=== PATIENT | female | born 1980 | race American Indian/Alaskan Native ===

== ENCOUNTER 2018-01-27 04:19 | Emergency (ER) | payer SELFPAY ==
[2018-01-27 05:28] VITALS: BP 128/92
[2018-01-27 06:11] LABS: HCG Qualitative,Urine Negative (Negative)
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
[2018-01-27] MEDS ORDERED: NORCO 5/325 PO ONE (08:19)
[2018-01-27] MEDS ORDERED: ZOFRAN ODT PO ONE (08:32)
[2018-01-27] MEDS ORDERED: ZOFRAN ODT ONE (08:36)
== END 2018-01-27 08:55 | disposition home or self-care (01) ==
LOC: ED 04:19
DX: S10.93XA Contusion of unspecified part of neck, initial encounter (principal); G44.319 Acute post-traumatic headache, not intractable; Y04.0XXA Assault by unarmed brawl or fight, initial encounter; Y93.89 Activity, other specified; Y92.009 Unspecified place in unspecified non-institutional (private) residence as the place of occurrence of the external cause; Y99.8 Other external cause status
CPT/HCPCS: 70450; 72125; 81025; 99284; Q0162

== ENCOUNTER 2018-06-29 18:12 | Emergency (ER) | payer SELFPAY ==
--- NOTE | 2018-06-29 22:24 | Emergency Department Report ---
Blank Doc - Documentation Documentation: 38 y.o. female presents to ED for anxiety. PMH: anxiety, asthma, and migraines. cc of anxiety and headache. Headache resolved. PlaN: Fast track side for evaluation
--- NOTE | 2018-06-30 00:32 | Emergency Department Report ---
ED Anxiety HPI - General Chief Complaint: Anxiety Stated Complaint: ANXIETY Time Seen by Provider: 06/29/18 22:22 Source: patient Mode of arrival: Ambulatory Limitations: No Limitations - History of Present Illness Initial Comments: This is a 38-year-old -[place] female presents for evaluation of anxiety. Past medical history Medical history of asthma, migraines, and anxiety. She reported headache and difficulty breathing. Patient reportedly has taken Tylenol with minimal improvement of headache. Patient reports her head is tingling currently. States shortness of breath since resolved but initially felt like she was going to . Patient requesting refills of lorazepam medication. Her primary care provider is [facility]. Denies chest pain, nausea or vomiting, radiating pain. MD Complaint: anxiety -: This evening Symptoms: sense of impending doom Place: home Previous History of Same: Yes Severity: mild Quality: similar to prior episodes Provoking factors: emotional stress Improves With: rest Associated symptoms: shortness of breath. denies: palpitations, diaphoresis, cough, fever/chills, headaches, anorexia, malaise, nausea/vomiting, rash, seizure, syncope, weakness - Related Data Home Medications: Previous Rx's Medication Instructions Recorded Last Taken Type Cyclobenzaprine [Flexeril] 10 mg PO TID PRN #12 tablet 01/27/18 Unknown Rx Ibuprofen [Motrin] 600 mg PO Q8H PRN #12 tablet 01/27/18 Unknown Rx Ondansetron [Zofran Odt] 4 mg PO Q6H PRN #20 tab.rapdis 01/27/18 Unknown Rx traMADol [Ultram 50 MG tab] 50 mg PO Q6HR PRN #20 tablet 01/27/18 Unknown Rx Dexamethasone [Decadron] 4 mg PO Q12H 3 Days #6 tablet 03/29/18 Unknown Rx EPINEPHrine [Epipen 2-Erlin] 0.3 mg IJ PRN PRN #1 auto.injct 03/29/18 Unknown Rx Metoclopramide [Reglan] 10 mg PO ACHS 7 Days #28 tablet 03/29/18 Unknown Rx diphenhydrAMINE [Benadryl CAP] 25 mg PO Q6HR PRN 7 Days #28 03/29/18 Unknown Rx capsule LORazepam [Ativan] 0.5 mg PO Q6H PRN #10 tablet 04/02/18 Unknown Rx Acetaminophen/Codeine [Tylenol 1 tab PO Q6H PRN #10 tab 04/19/18 Unknown Rx /Codeine # 3 tab] Amoxicillin/K Clav Tab [Augmentin 1 tab PO Q12HR #20 tab 04/19/18 Unknown Rx 875MG TAB] LORazepam [Ativan] 1 mg PO BID PRN 4 Days #4 tab 04/19/18 Unknown Rx Allergies/Adverse Reactions: Allergies Allergy/AdvReac Type Severity Reaction Status Date / Time No Known Allergies Allergy Verified 04/02/18 15:13 ED Review of Systems ROS: Stated complaint: ANXIETY Other details as noted in HPI Constitutional: denies: chills, fever Respiratory: shortness of breath. denies: cough, wheezing Cardiovascular: denies: chest pain, palpitations Gastrointestinal: denies: abdominal pain, nausea, diarrhea Skin: denies: rash, lesions Neurological: headache. denies: weakness, paresthesias Psychiatric: anxiety. denies: depression ED Past Medical Hx - Past Medical History Previous Medical History?: Yes Hx Headaches / Migraines: Yes Hx Psychiatric Treatment: Yes (anxiety) Hx Asthma: Yes - Surgical History Past Surgical History?: No - Social History Smoking Status: Never Smoker Substance Use Type: None - Medications Home Medications: Home Medications Medication Instructions Recorded Confirmed Last Taken Type Cyclobenzaprine [Flexeril] 10 mg PO TID PRN #12 tablet 01/27/18 Unknown Rx Ibuprofen [Motrin] 600 mg PO Q8H PRN #12 tablet 01/27/18 Unknown Rx Ondansetron [Zofran Odt] 4 mg PO Q6H PRN #20 tab.rapdis 01/27/18 Unknown Rx traMADol [Ultram 50 MG tab] 50 mg PO Q6HR PRN #20 tablet 01/27/18 Unknown Rx Dexamethasone [Decadron] 4 mg PO Q12H 3 Days #6 tablet 03/29/18 Unknown Rx EPINEPHrine [Epipen 2-Erlin] 0.3 mg IJ PRN PRN #1 auto.injct 03/29/18 Unknown Rx Metoclopramide [Reglan] 10 mg PO ACHS 7 Days #28 tablet 03/29/18 Unknown Rx diphenhydrAMINE [Benadryl CAP] 25 mg PO Q6HR PRN 7 Days #28 03/29/18 Unknown Rx capsule LORazepam [Ativan] 0.5 mg PO Q6H PRN #10 tablet 04/02/18 Unknown Rx Acetaminophen/Codeine [Tylenol 1 tab PO Q6H PRN #10 tab 04/19/18 Unknown Rx /Codeine # 3 tab] Amoxicillin/K Clav Tab [Augmentin 1 tab PO Q12HR #20 tab 04/19/18 Unknown Rx 875MG TAB] LORazepam [Ativan] 1 mg PO BID PRN 4 Days #4 tab 04/19/18 Unknown Rx ED Physical Exam - General Limitations: No Limitations General appearance: alert, in no apparent distress - Respiratory Respiratory exam: Present: normal lung sounds bilaterally. Absent: respiratory distress - Cardiovascular Cardiovascular Exam: Present: regular rate, normal rhythm. Absent: systolic murmur, diastolic murmur, rubs, gallop - GI/Abdominal GI/Abdominal exam: Present: soft, normal bowel sounds - Neurological Exam Neurological exam: Present: alert, oriented X3 - Psychiatric Psychiatric exam: Present: normal affect, normal mood - Skin Skin exam: Present: warm, dry, intact, normal color. Absent: rash ED Course Vital Signs 06/29/18 22:22 Temperature 97.7 F Pulse Rate 67 Respiratory 18 Rate Blood Pressure 99/75 O2 Sat by Pulse 100 Oximetry ED Medical Decision Making - Medical Decision Making Patient was examined by me. Vitals are normal and patient is in no acute distress. Given lorazepam 0.5 mg by mouth once the ER. She have been seen here before for same symptoms. Normal CT of head in January and March 2018. Instructed to follow-up with [facility] tomorrow for refills. Plan discussed with patient to discharge home and treat outpatient. She agrees with ER plan. Patient discharged home in stable condition. Follow up with PCP in 2-3 days. Critical care attestation.: If time is entered above; I have spent that time in minutes in the direct care of this critically ill patient, excluding procedure time. ED Disposition Clinical Impression: Anxiety Disposition: DC-01 TO HOME OR SELFCARE Is pt being admited?: No Does the pt Need Aspirin: No Condition: Stable Instructions: Anxiety (ED) Additional Instructions: Follow-up with medical clinic for refills of anxiety medication. Referrals: [facility] [Other] - 3-5 Days Time of Disposition: 00:35
[2018-06-30] MEDS ORDERED: ATIVAN PO ONE (00:34)
[2018-06-30 01:08] VITALS: BP 114/72
== END 2018-06-30 01:14 | disposition home or self-care (01) ==
LOC: ED 18:12
DX: F41.9 Anxiety disorder, unspecified (principal); J45.909 Unspecified asthma, uncomplicated; G43.909 Migraine, unspecified, not intractable, without status migrainosus
CPT/HCPCS: 99283

== ENCOUNTER 2018-07-02 14:09 | Emergency (ER) | payer SELFPAY ==
[2018-07-02 14:21] VITALS: BP 137/88
--- NOTE | 2018-07-02 14:22 | Emergency Department Report ---
Blank Doc - Documentation Documentation: 38 y o female presents with head ache , states tibgling sensation to head and p alpatations was seen here 2 days ago with no meds states symptoms are worse rates pain 10/10 intensity PLAn: give Meds for pain refill lorazepam for 1 week till f/u Reevaluate
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
[2018-07-02] MEDS ORDERED: ATIVAN PO ONE (15:23)
== END 2018-07-02 15:39 | disposition home or self-care (01) ==
LOC: ED 14:09
DX: F43.0 Acute stress reaction (principal); F41.1 Generalized anxiety disorder; G43.909 Migraine, unspecified, not intractable, without status migrainosus; J45.909 Unspecified asthma, uncomplicated
CPT/HCPCS: 99282